=== PATIENT | male | born 1950 | race Caucasian/White ===

== ENCOUNTER 2016-08-17 11:22 | Emergency (ER) | payer MEDICARE ==
[~2016-08-17] VITALS: Ht 175.3 cm; Wt 57.5 kg
[2016-08-17] VITALS (7 sets, daily range): BP systolic 101–155; BP diastolic 53–82; PULSE 72–101; RESP 15–20; TEMP 97.8–98.8; O2SAT 97–100
[~2016-08-17 11:22] MED LIST: FOLI1TAB4 PO; IPRA17I INH; THERTAB15 PO; VITA10002 PO; VITA100T2 PO; WALKER WHEELS/F1 MIS
--- NOTE | 2016-08-17 11:36 | PD ---
Physical Exam Date Seen by Provider: Aug 17, 2016 Time Seen by Provider: 11:33 Narrative Patient brought in be EMS with reports of ETOH, Near Syncope this am, and lower leg edema for the past 2 weeks. Patient states Suicidal Ideation to EMS. C/O "pain all over" Received 500ml NS in EMS. Denies Fever, chills or chest pain. V/S now stable. Awaiting Med Bed placement. [facility] Medical Record Reviewed: Yes Supervised Visit with MICHELL: Yes Condition: Stable Dann Burr Aug 17, 2016 11:36
[2016-08-17] MEDS ORDERED: SODIUM CHLOR 0.9% 1000 ML INJ 1,000 ML IV ONE (12:24)
[2016-08-17] MEDS ORDERED: SODIUM CHLORIDE 0.9% FLUSH 10 ML FLUSH IVF PRN (12:30)
--- NOTE | 2016-08-17 12:33 | PD ---
HPI Chief Complaint: Dizziness Time Seen by Provider: 12:28 Travel History International Travel<30 days: No Contact w/Intl Traveler<30days: No Traveled to known affect area: No History of Present Illness HPI 66-year-old male presents to the emergency department for bilateral feet swelling, dizziness, presyncope. Patient reports being an alcoholic. He states he has not drink yet today, but did drink a 6 pack and vodka. The patient states that he walked on the beach and after walking on the beach, he felt dizzy. He states he was walking back to his house when he had a presyncopal episode and fell catching himself with his hands. He denies any fevers. He reports intermittent chest pain that has been ongoing for one year, none at this time. He denies any abdominal pain. No nausea or vomiting. He states the dizziness is worse with walking, relieved with rest. He denies any syncope. The patient states that he has been depressed for approximately 3-4 months after losing his job. He states that is when he started drinking alcohol heavily. He states that he will have thoughts about hurting himself and will drink alcohol which will relieve the fall. He denies any suicidal thoughts at this time. He has no plan to hurt himself. He does smoke, but denies any illicit drug use. PFSH Past Medical History Anemia: Yes Asthma: No Blood Disorders: No Anxiety: No Depression: No Heart Rhythm Problems: No Cancer: No Cardiovascular Problems: No High Cholesterol: No Chemotherapy: No Chest Pain: No Congestive Heart Failure: No COPD: No Diabetes: No Diminished Hearing: No Endocrine: No Gastrointestinal Disorders: No Genitourinary: No Immune Disorder: No Implanted Vascular Access Dvce: No Musculoskeletal: No Neurologic: No Psychiatric: No Reproductive: No Respiratory: No Pneumonia: Yes Radiation Therapy: No Sleep Apnea: No Thyroid Disease: No ?: Not Past Surgical History Surgical History: No Previous Surgery Pacemaker: No Other Surgery: No Social History Alcohol Use: Yes (daily) Tobacco Use: Yes (1/2 PPD) Substance Use: No Allergies-Medications (Allergen,Severity, Reaction): Coded Allergies: No Known Allergies (Unverified , 08/17/16) Reported Meds & Prescriptions Reported Meds & Active Scripts Active No Active Prescriptions or Reported Medications Review of Systems Except as stated in HPI: all other systems reviewed are Neg Physical Exam Narrative GENERAL: Well-nourished, well-developed male patient, afebrile. SKIN: Focused skin assessment warm/dry. HEAD: Normocephalic. Atraumatic. EYES: No scleral icterus. No injection or drainage. NECK: Supple, trachea midline. No JVD or lymphadenopathy. CARDIOVASCULAR: Regular rate and rhythm without murmurs, gallops, or rubs. Bilateral radial and pedal pulses 2+. RESPIRATORY: Breath sounds equal bilaterally. No accessory muscle use. Lungs sounds with slight extra wheezes noted in the bases. GASTROINTESTINAL: Abdomen soft, non-tender, nondistended. MUSCULOSKELETAL: No cyanosis. Patient has 2+ edema to the bilateral feet. No edema or erythema to the calves. He does have erythema to the bilateral dorsal feet, consistent with sunburn. BACK: Nontender without obvious deformity. No CVA tenderness. RECTAL EXAM: No masses or tenderness, stool is brown. Rectal exam was done with nurse at bedside. Data Data Last Documented VS Vital Signs Date Time Temp Pulse Resp B/P Pulse Ox O2 Delivery O2 Flow Rate FiO2 08/17/16 13:48 85 16 142/75 97 08/17/16 12:36 Room Air 08/17/16 11:34 97.8 Orders Electrocardiogram (08/17/16 11:54) Complete Blood Count With Diff (08/17/16 11:54) Comprehensive Metabolic Panel (08/17/16 11:54) Iv Access Insert/Monitor (08/17/16 11:54) Magnesium (Mg) (08/17/16 12:24) B-Type Natriuretic Peptide (08/17/16 12:24) Ckmb (Isoenzyme) Profile (08/17/16 12:24) Troponin I (08/17/16 12:24) Urinalysis - C+S If Indicated (08/17/16 12:24) Chest, Single Ap (08/17/16 12:24) Ct Brain W/O Iv Contrast(Rout) (08/17/16 12:24) Ecg Monitoring (08/17/16 12:24) Oximetry (08/17/16 12:24) Sodium Chloride 0.9% Flush (Ns Flush) (08/17/16 12:30) Sodium Chlor 0.9% 1000 Ml Inj (Ns 1000 M (08/17/16 12:24) Alcohol (Ethanol) (08/17/16 12:24) Drug Screen, Random Urine (08/17/16 12:24) Orthostatic Vital Signs (08/17/16 12:24) Psych Screen (08/17/16 14:39) Magnesium Oxide (Mag-Ox) (08/17/16 14:45) Labs Laboratory Tests Test 08/17/16 08/17/16 12:32 13:42 Urine Color YELLOW Urine Turbidity CLEAR Urine pH 6.5 Urine Specific [place] 1.009 Urine Protein NEG mg/dL Urine Glucose (UA) NEG mg/dL Urine Ketones NEG mg/dL Urine Occult Blood NEG Urine Nitrite NEG Urine Bilirubin NEG Urine Urobilinogen 2.0 MG/DL Urine Leukocyte Esterase NEG Urine RBC LESS THAN 1 /hpf Urine WBC LESS THAN 1 /hpf Urine Hyaline Casts 35 /lpf Urine Mucus FEW /lpf Microscopic Urinalysis Comment CULT NOT INDICATED Sodium Level 138 MEQ/L Potassium Level 3.6 MEQ/L Chloride Level 105 MEQ/L Carbon Dioxide Level 22.8 MEQ/L Anion Gap 10 MEQ/L Blood Urea Nitrogen 7 MG/DL Creatinine 0.97 MG/DL Estimat Glomerular Filtration 78 ML/MIN Rate Random Glucose 89 MG/DL Calcium Level 7.6 MG/DL Magnesium Level 1.1 MG/DL Total Bilirubin 1.5 MG/DL Aspartate Amino Transf 70 U/L (AST/SGOT) Alanine Aminotransferase 30 U/L (ALT/SGPT) Alkaline Phosphatase 153 U/L Total Creatine Kinase 54 U/L Troponin I LESS THAN 0.02 NG/ML B-Type Natriuretic Peptide 227 PG/ML Total Protein 6.4 GM/DL Albumin 3.0 GM/DL Urine Opiates Screen NEG Urine Barbiturates Screen NEG Urine Amphetamines Screen NEG Urine Benzodiazepines Screen NEG Urine Cocaine Screen NEG Urine Cannabinoids Screen NEG Ethyl Alcohol Level LESS THAN 3 MG/DL White Blood Count 3.4 TH/MM3 Red Blood Count 2.44 MIL/MM3 Hemoglobin 8.9 GM/DL Hematocrit 25.8 % Mean Corpuscular Volume 105.6 FL Mean Corpuscular Hemoglobin 36.5 PG Mean Corpuscular Hemoglobin 34.6 % Concent Red Cell Distribution Width 19.3 % Platelet Count 61 TH/MM3 Mean Platelet Volume 9.6 FL Neutrophils (%) (Auto) 43.5 % Lymphocytes (%) (Auto) 41.1 % Monocytes (%) (Auto) 14.2 % Eosinophils (%) (Auto) 0.4 % Basophils (%) (Auto) 0.8 % Neutrophils # (Auto) 1.5 TH/MM3 Lymphocytes # (Auto) 1.4 TH/MM3 Monocytes # (Auto) 0.5 TH/MM3 Eosinophils # (Auto) 0.0 TH/MM3 Basophils # (Auto) 0.0 TH/MM3 CBC Comment AUTO DIFF MDM Medical Decision Making Medical Screen Exam Complete: Yes Emergency Medical Condition: Yes Medical Record Reviewed: Yes Interpretation(s) CT brain - CONCLUSION: Diffuse atrophy, prominent for age. No acute intracranial findings. chest x-ray - CONCLUSION: Scarring versus subsegmental atelectasis at the right lung base. Differential Diagnosis Electrolyte abnormality versus alcoholism versus dehydration versus intracranial abnormality versus ACS Narrative Course 66-year-old male presents to the emergency department for evaluation of dizziness, presyncope, bilateral feet swelling, depression. EKG shows sinus rhythm, heart rate 64, no acute ST changes. IV access established. CBC, CMP, magnesium, CK, troponin, BNP, UA, alcohol level, urine drug screen are ordered and pending. Chest x-ray and CT of the brain are ordered and pending. Orthostatic vital signs are ordered and pending. Patient is given normal saline 1 L IV bolus. CBC shows leukopenia 3.4, hemoglobin 8.9, hematocrit 25.8, platelets 61. CMP shows elevated bilirubin 1.5, AST 70, apply phosphatase 153. Magnesium is 1.1. CK is 54. Troponin is less than 0.02. BNP is 227. UA is negative for acute infection. Alcohol level is less than 3. UDS is negative. Chest x-ray shows Scarring versus subsegmental atelectasis at the right lung base. CT of the brain shows diffuse atrophy, prominent for age. No acute intracranial findings. Orthostatic VS is significant for lying blood pressure 155/82, heart rate 58, standing 123/79, heart rate 97. Patient was given normal saline 1 L IV bolus. Rectal exam was done due to hemoglobin of 8.9 which showed negative Hemoccult. Patient states he feels better and is asking for food. Patient is given magnesium oxide 400 mg by mouth for hypomagnesemia. I discussed the case and findings with my attending physician, Dr. Chavez, who agrees with plan and disposition. Psych screen is ordered. Patient is medically cleared for psych issues screening and disposition. [facility] Point of Care Internal Pos. & Neg. Controls: Passed Fecal Specimen Occult Blood: Negative Diagnosis Primary Impression: Dizziness Additional Impressions: Hypomagnesemia Depression Qualified Code: F32.9 - Depression, unspecified depression type Additional Instructions: Patient is medically cleared for psychiatric screening and disposition. Scripts No Active Prescriptions or Reported Meds Condition: Fernanda Prescott Aug 17, 2016 12:33
[2016-08-17 13:33] LABS: MAGNESIUM 1.1 MG/DL (1.5-2.5)
[2016-08-17 13:34] LABS: CREATINE KINASE 54 U/L (39-308)
[2016-08-17 13:45] LABS: AMPHETAMINE, URINE NEG (NEG); BARBITURATES, URINE NEG (NEG); BLOOD, URINE NEG (NEG); COCAINE, URINE NEG (NEG); COMMENT (UR) CULT NOT INDICATED; CULTURE IF INDICATED CULT NOT INDICATED; GLUCOSE,URINE NEG (NEG); HYALINE CAST, URINE 35 /lpf (RARE); KETONE, URINE NEG (NEG); MUCUS URINE FEW /lpf (OCC); NITRITE,URINE NEG (NEG); PH, URINE 6.5 (5.0-8.5); URINE COLOR YELLOW (YELLW/STRAW)
--- NOTE | 2016-08-17 13:46 | RADRPT ---
EXAM DATE/TIME: 08/17/2016 12:38 [facility] COMPARISON: No previous studies available for comparison. INDICATIONS : Dizziness. RADIATION DOSE: 56.35 CTDIvol (mGy) MEDICAL HISTORY : None SURGICAL HISTORY : None. ENCOUNTER: Initial ACUITY: 1 day PAIN SCALE: 0/10 LOCATION: cranial TECHNIQUE: Multiple contiguous axial images were obtained of the head. Using automated exposure control and adj ustment of the mA and/or kV according to patient size, radiation dose was kept as low as reasonably a chievable to obtain optimal diagnostic quality images. FINDINGS: CEREBRUM: Diffuse prominence of the ventricles, sulci, and cisterns indicating diffuse atrophy, prominent for a ge. No evidence of midline shift, mass lesion, hemorrhage or acute infarction. No extra-axial fluid collections are seen. POSTERIOR FOSSA: The cerebellum and brainstem are intact. The 4th ventricle is midline. The cerebellopontine angle i s unremarkable. EXTRACRANIAL: The visualized portion of the orbits is intact. SKULL: The calvaria is intact. No evidence of skull fracture. CONCLUSION: Diffuse atrophy, prominent for age. No acute intracranial findings. Ted Maynard MD on August 17, 2016 at 13:42 Board Certified Radiologist. This report was verified electronically.
--- NOTE | 2016-08-17 13:52 | RADRPT ---
EXAM DATE/TIME: 08/17/2016 12:46 [facility] COMPARISON: CHEST SINGLE AP, March 24, 2016, 10:11. INDICATIONS : Cough. MEDICAL HISTORY : None. SURGICAL HISTORY : None. ENCOUNTER: Initial ACUITY: 1 day PAIN SCORE: 0/10 LOCATION: Bilateral chest FINDINGS: Single AP view of the chest. Linear subsegmental atelectasis versus scarring at the right lung base. The lungs are otherwise clear. Cardiomediastinal silhouette within normal limits. No evidence of pleu ral effusion or pneumothorax. CONCLUSION: Scarring versus subsegmental atelectasis at the right lung base. Ted Maynard MD on August 17, 2016 at 13:49 Board Certified Radiologist. This report was verified electronically.
[2016-08-17 14:03] LABS: ALKALINE PHOSPHATASE 153 U/L (45-117); ALT (GPT) 30 U/L (12-78); ANION GAP 10 MEQ/L (5-15); AST (GOT) 70 U/L (15-37); BICARBONATE 22.8 MEQ/L (21.0-32.0); BLOOD UREA NITROGEN 7 MG/DL (7-18); CHLORIDE 105 MEQ/L (98-107); GLOMERULAR FILTRATION RATE 78 ML/MIN (>89); POTASSIUM 3.6 MEQ/L (3.5-5.1); SODIUM (NA) 138 MEQ/L (136-145); TOTAL BILIRUBIN ADULT 1.5 MG/DL (0.2-1.0)
[2016-08-17 14:15] LABS: AUTOMATED NEUTROPHIL # 1.5 TH/MM3 (1.8-7.7); BASOPHIL % 0.8 % (0.0-2.0); EOSINOPHIL % 0.4 % (0.0-4.0); HEMATOCRIT 25.8 % (39.0-51.0); LYMPH % 41.1 % (9.0-44.0); LYMPHOCYTE # 1.4 TH/MM3 (1.0-4.8); MEAN CELL VOLUME 105.6 FL (80.0-100.0); MEAN CORPUSCULAR HEMOGLOBIN 36.5 PG (27.0-34.0); MEAN CORPUSCULAR HGB CONC 34.6 % (32.0-36.0); MONO % 14.2 % (0.0-8.0); NEUT % 43.5 % (16.0-70.0); PLATELET COUNT 61 TH/MM3 (150-450); RED BLOOD COUNT 2.44 MIL/MM3 (4.50-5.90); RED CELL DISTRIBUTION WIDTH 19.3 % (11.6-17.2); WHITE BLOOD COUNT 3.4 TH/MM3 (4.0-11.0)
[2016-08-17 14:21] LABS: HEMO FLAGS AUTO DIFF
[2016-08-17] MEDS ORDERED: MAGNESIUM OXIDE 400 MG TAB PO ONE (14:45)
[2016-08-17 15:31] LABS: PLATELET ESTIMATE SMEAR LOW (NORMAL); PLATELET MORPHOLOGY NORMAL (NORMAL); SCAN/DIFF AUTO DIFF CONFIRMED
[2016-08-17] MEDS ORDERED: FLUMAZENIL 0.5 MG/5 ML VIAL IV PUSH PRN (19:15)
[2016-08-17] MEDS ORDERED: LORazepam 2 MG TAB PO PRN (19:15)
[2016-08-17] MEDS ORDERED: LORazepam 2 MG/ML VIAL IV PUSH PRN ×4 (19:15)
[2016-08-17] MEDS ORDERED: LORazepam 1 MG TAB PO PRN (19:15)
[2016-08-18 02:09] VITALS: BP 110/58; PULSE 65; RESP 18
[2016-08-18 06:12] VITALS: BP 105/63; PULSE 61; RESP 18
--- NOTE | 2016-08-18 23:08 | EKG ---
Date Performed: 08/17/2016 Time Performed: 12:28:28 PTAGE: 66 years EKG: JUNCTIONAL RHYTHM ABNORMAL RHYTHM ECG PREVIOUS TRACING : 03/24/2016 10.07 Compared to the previous tracing junctional rhythm is new DOCTOR: Samuel Butts Interpretating Date/Time 08/18/2016 23:07:35
== END 2016-08-18 10:24 ==
LOC: NEPC 11:22 → NEPJ 08-18 10:24
DX: R42 Dizziness and giddiness (principal); E83.42 Hypomagnesemia; R05 Cough; F33.9 Major depressive disorder, recurrent, unspecified; R07.9 Chest pain, unspecified; D72.819 Decreased white blood cell count, unspecified; I49.9 Cardiac arrhythmia, unspecified; F10.20 Alcohol dependence, uncomplicated
CPT/HCPCS: 70450; 71010; 80053; 80307; 81001; 82550; 83735; 83880; 84484; 85025; 93005; 96360; 99285; J7030

== ENCOUNTER 2017-01-09 16:28 | Emergency (ER) | payer MEDICARE, OTHER ==
[~2017-01-09] VITALS: Ht 175 cm; Wt 65.0 kg
[2017-01-09 16:36] VITALS: BP 131/79; PULSE 97; RESP 22; TEMP 97.7; O2SAT 100
[2017-01-09 17:08] LABS: AUTOMATED NEUTROPHIL # 2.7 TH/MM3 (1.8-7.7); BASOPHIL % 1.1 % (0.0-2.0); EOSINOPHIL % 0.7 % (0.0-4.0); HEMATOCRIT 34.5 % (39.0-51.0); HEMO FLAGS DIFF FINAL; LYMPH % 25.7 % (9.0-44.0); LYMPHOCYTE # 1.2 TH/MM3 (1.0-4.8); MEAN CELL VOLUME 105.6 FL (80.0-100.0); MEAN CORPUSCULAR HEMOGLOBIN 35.7 PG (27.0-34.0); MEAN CORPUSCULAR HGB CONC 33.8 % (32.0-36.0); MONO % 15.4 % (0.0-8.0); NEUT % 57.1 % (16.0-70.0); PLATELET COUNT 102 TH/MM3 (150-450); RED BLOOD COUNT 3.26 MIL/MM3 (4.50-5.90); RED CELL DISTRIBUTION WIDTH 13.2 % (11.6-17.2); WHITE BLOOD COUNT 4.7 TH/MM3 (4.0-11.0)
[2017-01-09 17:48] LABS: ALKALINE PHOSPHATASE 126 U/L (45-117); ALT (GPT) 34 U/L (12-78); ANION GAP 9 MEQ/L (5-15); AST (GOT) 45 U/L (15-37); BLOOD UREA NITROGEN 6 MG/DL (7-18); CHLORIDE 98 MEQ/L (98-107); GLOMERULAR FILTRATION RATE 62 ML/MIN (>89); POTASSIUM 3.5 MEQ/L (3.5-5.1); SODIUM (NA) 132 MEQ/L (136-145); TOTAL BILIRUBIN ADULT 0.9 MG/DL (0.2-1.0)
[2017-01-09 17:49] LABS: ALCOHOL LESS THAN 3 MG/DL (0-5)
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
[2017-01-09] MEDS ORDERED: LORazepam 2 MG TAB PO PRN (18:15)
[2017-01-09] MEDS ORDERED: LORazepam 2 MG/ML VIAL IV PUSH PRN ×4 (18:15)
[2017-01-09] MEDS ORDERED: FLUMAZENIL 0.5 MG/5 ML VIAL IV PUSH PRN (18:15)
[2017-01-09] MEDS ORDERED: ACETAMINOPHEN 325 MG TAB PO PRN (18:15)
[2017-01-09] MEDS ORDERED: LORazepam 1 MG TAB PO PRN (18:15)
[2017-01-09] MEDS ORDERED: ONDANSETRON ODT 4 MG TAB PO PRN (18:15)
[2017-01-09 20:48] VITALS: BP 142/65; PULSE 87; RESP 17; O2SAT 100
[2017-01-10 02:00] VITALS: BP 109/56; PULSE 62; RESP 19; O2SAT 100
[2017-01-10 06:12] VITALS: BP 108/58; PULSE 65; RESP 18; O2SAT 95
--- NOTE | 2017-01-10 09:49 | PD ---
Physical Exam Date Seen by Provider: Jan 10, 2017 Time Seen by Provider: 09:48 Narrative For full history and physical examination please see previous provider's notes. Data Data Last Documented VS Vital Signs Date Time Temp Pulse Resp B/P (MAP) Pulse Ox O2 Delivery O2 Flow Rate FiO2 01/10/17 06:12 65 18 108/58 (75) 95 01/10/17 02:00 Room Air 01/09/17 16:36 97.7 Orders Orders Complete Blood Count With Diff (01/09/17 16:44) Comprehensive Metabolic Panel (01/09/17 16:44) Psych Screen (01/09/17 16:44) Drug Screen, Random Urine (01/09/17 16:44) Alcohol (Ethanol) (01/09/17 16:44) Alcohol Withdrawal Asmt-Ciwa ONCE (01/09/17 18:05) Ondansetron Odt (Zofran Odt) (01/09/17 18:15) Acetaminophen (Tylenol) (01/09/17 18:15) Flumazenil Inj (Romazicon Inj) (01/09/17 18:15) Lorazepam (Ativan) (01/09/17 18:15) Lorazepam Inj (Ativan Inj) (01/09/17 18:15) Lorazepam (Ativan) (01/09/17 18:15) Lorazepam Inj (Ativan Inj) (01/09/17 18:15) Lorazepam Inj (Ativan Inj) (01/09/17 18:15) Lorazepam Inj (Ativan Inj) (01/09/17 18:15) Diet Regular Basic (01/10/17 Breakfast) Diet Regular Basic (01/10/17 Lunch) Labs Laboratory Tests Test 01/09/17 16:50 01/09/17 16:55 White Blood Count 4.7 TH/MM3 Red Blood Count 3.26 MIL/MM3 Hemoglobin 11.7 GM/DL Hematocrit 34.5 % Mean Corpuscular Volume 105.6 FL Mean Corpuscular Hemoglobin 35.7 PG Mean Corpuscular Hemoglobin Concent 33.8 % Red Cell Distribution Width 13.2 % Platelet Count 102 TH/MM3 Mean Platelet Volume 8.8 FL Neutrophils (%) (Auto) 57.1 % Lymphocytes (%) (Auto) 25.7 % Monocytes (%) (Auto) 15.4 % Eosinophils (%) (Auto) 0.7 % Basophils (%) (Auto) 1.1 % Neutrophils # (Auto) 2.7 TH/MM3 Lymphocytes # (Auto) 1.2 TH/MM3 Monocytes # (Auto) 0.7 TH/MM3 Eosinophils # (Auto) 0.0 TH/MM3 Basophils # (Auto) 0.0 TH/MM3 CBC Comment DIFF FINAL Differential Comment Blood Urea Nitrogen 6 MG/DL Creatinine 1.18 MG/DL Random Glucose 125 MG/DL Total Protein 7.4 GM/DL Albumin 3.8 GM/DL Calcium Level 9.4 MG/DL Alkaline Phosphatase 126 U/L Aspartate Amino Transf (AST/SGOT) 45 U/L Alanine Aminotransferase (ALT/SGPT) 34 U/L Total Bilirubin 0.9 MG/DL Sodium Level 132 MEQ/L Potassium Level 3.5 MEQ/L Chloride Level 98 MEQ/L Carbon Dioxide Level 25.0 MEQ/L Anion Gap 9 MEQ/L Estimat Glomerular Filtration Rate 62 ML/MIN Ethyl Alcohol Level LESS THAN 3 MG/DL Urine Opiates Screen NEG Urine Barbiturates Screen NEG Urine Amphetamines Screen NEG Urine Benzodiazepines Screen POS Urine Cocaine Screen NEG Urine Cannabinoids Screen NEG MDM Medical Record Reviewed: Yes Supervised Visit with MICHELL: No Narrative Course Patient presented voluntarily to emergency department in order to obtain transportation to the [facility]. He has a history of depression and alcoholism, there was no suicidal or homicidal ideations. Patient was seen and evaluated by psychiatric nurse practitioner, he will be discharged home with follow-up at the [facility]. Diagnosis Primary Impression: Depression Qualified Codes: F33.1 - Major depressive disorder, recurrent, moderate Additional Impression: Alcoholism Referrals: [facility] (Out patient) Patient Instructions: General Instructions Additional Instruction: Avoid excessive alcohol intake Follow-up at the [facility] or at [facility] Return to emergency department for any new or worsening symptoms Med/Other Pt SpecificInfo: No Change to Meds Scripts No Active Prescriptions or Reported Meds Disposition: 01 DISCHARGE HOME Condition: Stable Noemy Webb Jan 10, 2017 09:49
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
== END 2017-01-10 09:58 | disposition home or self-care (01) ==
LOC: NEDAMB 16:28 → NEPJ 01-10 09:58
DX: F33.1 Major depressive disorder, recurrent, moderate (principal); F10.20 Alcohol dependence, uncomplicated; Y90.0 Blood alcohol level of less than 20 mg/100 ml; Z72.0 Tobacco use
CPT/HCPCS: 80053; 80307; 85025; 99284

== ENCOUNTER 2017-05-03 13:38 | Emergency (ER) | payer MEDICARE, OTHER ==
[~2017-05-03] VITALS: Ht 175.3 cm; Wt 66.0 kg
[2017-05-03 13:56] VITALS: BP 148/64; PULSE 117; RESP 20; TEMP 97.8; O2SAT 95
--- NOTE | 2017-05-03 14:41 | PD ---
Physical Exam Time Seen by Provider: 14:38 Narrative 67-year-old male presents emergency Department with complaint of his legs giving out and feeling dizzy today. Has continued dizziness. Reports leg pain and weakness. He says his legs have no strength. Denies chest pain, shortness of breath. Says his heart was beating fast when the paramedics came. No fever , vomiting. Patient seen in triage. VS reviewed. Awaiting bed placement. See next providers note for final patient disposition. Data Data Last Documented VS Vital Signs Date Time Temp Pulse Resp B/P (MAP) Pulse Ox O2 Delivery O2 Flow Rate FiO2 05/03/17 13:56 97.8 117 20 148/64 (92) 95 Room Air MDM Supervised Visit with MICHELL: No Scripts No Active Prescriptions or Reported Meds Alejandra Pickering May 03, 2017 14:41
[2017-05-03] MEDS ORDERED: POTA595T PO (14:57)
[2017-05-03] MEDS ORDERED: ONE-TAB PO (14:57)
--- NOTE | 2017-05-03 15:52 | PD ---
HPI Chief Complaint: General Weakness Time Seen by Provider: 15:50 Travel History International Travel<30 days: No Contact w/Intl Traveler<30days: No Traveled to known affect area: No History of Present Illness HPI DELETE, DUPLICATE PFSH Past Medical History Anemia: Yes Asthma: No Blood Disorders: No Anxiety: No Depression: No Heart Rhythm Problems: No Cancer: No Cardiovascular Problems: No High Cholesterol: No Chemotherapy: No Chest Pain: No Congestive Heart Failure: No COPD: Yes Diabetes: No Diminished Hearing: No Endocrine: No Gastrointestinal Disorders: No Genitourinary: No Immune Disorder: No Implanted Vascular Access Dvce: No Musculoskeletal: No Neurologic: No Psychiatric: No Reproductive: No Respiratory: Yes Pneumonia: Yes Radiation Therapy: No Sleep Apnea: No Thyroid Disease: No Past Surgical History Surgical History: No Previous Surgery Pacemaker: No Other Surgery: No Social History Alcohol Use: Yes (couple beers per day) Tobacco Use: Yes Substance Use: No Allergies-Medications (Allergen,Severity, Reaction): Coded Allergies: No Known Allergies (Unverified Adverse Reaction, Unknown, 05/03/17) Reported Meds & Prescriptions Reported Meds & Active Scripts Active Reported Potassium Gluconate 595 Mg (99 Mg) Tab 1 Caplet PO DAILY One-A-Day Essential (Multiple Vitamin) 1 Tab 1 Tab PO DAILY Data Data Last Documented VS Orders Orders Electrocardiogram (05/03/17 15:50) Ckmb (Isoenzyme) Profile (05/03/17 15:50) Complete Blood Count With Diff (05/03/17 15:50) Comprehensive Metabolic Panel (05/03/17 15:50) Magnesium (Mg) (05/03/17 15:50) Prothrombin Time / Inr (Pt) (05/03/17 15:50) Act Partial Throm Time (Ptt) (05/03/17 15:50) Troponin I (05/03/17 15:50) Chest, Single Ap (05/03/17 15:50) Ecg Monitoring (05/03/17 15:50) Iv Access Insert/Monitor (05/03/17 15:50) Oximetry (05/03/17 15:50) Oxygen Administration (05/03/17 15:50) Sodium Chloride 0.9% Flush (Ns Flush) (05/03/17 16:00) Sodium Chlorid 0.9% 500 Ml Inj (Ns 500 M (05/03/17 16:00) CKMB (05/03/17 16:06) CKMB% (05/03/17 16:06) Ed Discharge Order (05/03/17 17:30) Labs Laboratory Tests Test 05/03/17 16:06 White Blood Count 6.2 TH/MM3 Red Blood Count 3.58 MIL/MM3 Hemoglobin 12.4 GM/DL Hematocrit 36.6 % Mean Corpuscular Volume 102.2 FL Mean Corpuscular Hemoglobin 34.6 PG Mean Corpuscular Hemoglobin Concent 33.8 % Red Cell Distribution Width 14.8 % Platelet Count 123 TH/MM3 Mean Platelet Volume 8.1 FL Neutrophils (%) (Auto) 71.4 % Lymphocytes (%) (Auto) 19.2 % Monocytes (%) (Auto) 8.5 % Eosinophils (%) (Auto) 0.1 % Basophils (%) (Auto) 0.8 % Neutrophils # (Auto) 4.4 TH/MM3 Lymphocytes # (Auto) 1.2 TH/MM3 Monocytes # (Auto) 0.5 TH/MM3 Eosinophils # (Auto) 0.0 TH/MM3 Basophils # (Auto) 0.0 TH/MM3 CBC Comment DIFF FINAL Differential Comment Prothrombin Time 10.3 SEC Prothromb Time International Ratio 1.0 RATIO Activated Partial Thromboplast Time 29.4 SEC Blood Urea Nitrogen 10 MG/DL Creatinine 1.20 MG/DL Random Glucose 110 MG/DL Total Protein 7.8 GM/DL Albumin 4.3 GM/DL Calcium Level 9.0 MG/DL Magnesium Level 1.5 MG/DL Alkaline Phosphatase 104 U/L Aspartate Amino Transf (AST/SGOT) 51 U/L Alanine Aminotransferase (ALT/SGPT) 34 U/L Total Bilirubin 0.8 MG/DL Sodium Level 132 MEQ/L Potassium Level 4.6 MEQ/L Chloride Level 93 MEQ/L Carbon Dioxide Level 28.2 MEQ/L Anion Gap 11 MEQ/L Estimat Glomerular Filtration Rate 61 ML/MIN Total Creatine Kinase 115 U/L Creatine Kinase MB 0.9 NG/ML Troponin I LESS THAN 0.02 NG/ML Valerio Hadley MD May 03, 2017 15:52
[2017-05-03] MEDS ORDERED: SODIUM CHLORID 0.9% 500 ML INJ 500 ML IV ONE (16:00)
[2017-05-03] MEDS ORDERED: SODIUM CHLORIDE 0.9% FLUSH 10 ML FLUSH IVF PRN (16:00)
[2017-05-03 16:21] LABS: AUTOMATED NEUTROPHIL # 4.4 TH/MM3 (1.8-7.7); BASOPHIL % 0.8 % (0.0-2.0); EOSINOPHIL % 0.1 % (0.0-4.0); HEMATOCRIT 36.6 % (39.0-51.0); HEMOGLOBIN 12.4 GM/DL (13.0-17.0); LYMPH % 19.2 % (9.0-44.0); LYMPHOCYTE # 1.2 TH/MM3 (1.0-4.8); MEAN CELL VOLUME 102.2 FL (80.0-100.0); MEAN CORPUSCULAR HEMOGLOBIN 34.6 PG (27.0-34.0); MEAN CORPUSCULAR HGB CONC 33.8 % (32.0-36.0); MEAN PLATELET VOLUME 8.1 FL (7.0-11.0); MONO % 8.5 % (0.0-8.0); MONOCYTE # 0.5 TH/MM3 (0-0.9); NEUT % 71.4 % (16.0-70.0); PLATELET COUNT 123 TH/MM3 (150-450); RED BLOOD COUNT 3.58 MIL/MM3 (4.50-5.90); RED CELL DISTRIBUTION WIDTH 14.8 % (11.6-17.2); WHITE BLOOD COUNT 6.2 TH/MM3 (4.0-11.0)
[2017-05-03 16:29] LABS: PROTHROMBIN TIME - PATIENT 10.3 SEC (9.8-11.6)
[2017-05-03 16:37] LABS: ALBUMIN 4.3 GM/DL (3.4-5.0); AST (GOT) 51 U/L (15-37); BICARBONATE 28.2 MEQ/L (21.0-32.0); BLOOD UREA NITROGEN 10 MG/DL (7-18); CHLORIDE 93 MEQ/L (98-107); GLOMERULAR FILTRATION RATE 61 ML/MIN (>89); GLUCOSE,RANDOM 110 MG/DL (74-106); MAGNESIUM 1.5 MG/DL (1.5-2.5); SODIUM (NA) 132 MEQ/L (136-145)
[2017-05-03 16:38] LABS: ALT (GPT) 34 U/L (12-78)
[2017-05-03 16:42] LABS: ALKALINE PHOSPHATASE 104 U/L (45-117); TOTAL BILIRUBIN ADULT 0.8 MG/DL (0.2-1.0); TOTAL PROTEIN 7.8 GM/DL (6.4-8.2); TROPONIN I LESS THAN 0.02 NG/ML (0.02-0.05)
--- NOTE | 2017-05-03 16:46 | RADRPT ---
EXAM DATE/TIME: 05/03/2017 16:02 [facility] COMPARISON: CHEST SINGLE AP, August 17, 2016, 12:46. INDICATIONS : Shortness of breath. MEDICAL HISTORY : None. SURGICAL HISTORY : None. ENCOUNTER: Initial ACUITY: 1 day PAIN SCORE: 0/10 LOCATION: Bilateral chest FINDINGS: 2 AP portable erect views of the chest demonstrates no evidence of mass, infiltrate or effusion. Ther e is mild scarring at the right lung base. There is mild volume loss again noted in the right hemitho rax. The cardiomediastinal contours are unremarkable. Osseous structures are intact. CONCLUSION: No acute disease. Adrian Huizar MD on May 03, 2017 at 16:41 Board Certified Radiologist. This report was verified electronically.
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
--- NOTE | 2017-05-04 16:24 | EKG ---
Date Performed: 05/03/2017 Time Performed: 16:11:49 PTAGE: 67 years EKG: Sinus rhythm NORMAL ECG PREVIOUS TRACING : 08/17/2016 12.28 Compared to previous tracing, sinus rhythm has replaced jt ctional rhythm. DOCTOR: Lenin Camacho Interpretating Date/Time 05/04/2017 16:22:45
== END 2017-05-03 18:11 | disposition home or self-care (01) ==
LOC: NEPD 13:38
DX: R53.1 Weakness (principal); D64.9 Anemia, unspecified; J44.9 Chronic obstructive pulmonary disease, unspecified; Z72.0 Tobacco use; Z79.899 Other long term (current) drug therapy
CPT/HCPCS: 71045; 80053; 82550; 82552; 83735; 84484; 85025; 85610; 85730; 93005; 99285; J7040

== ENCOUNTER 2017-05-03 20:12 | Emergency (ER) | payer MEDICARE, MEDICAID ==
[~2017-05-03] VITALS: Ht 175.3 cm; Wt 66.0 kg
[~2017-05-03 20:12] MED LIST changes: -FOLI1TAB4 PO; -IPRA17I INH; +ONE-TAB PO; +POTA595T PO; -THERTAB15 PO; -VITA10002 PO; -VITA100T2 PO; -WALKER WHEELS/F1 MIS
[2017-05-03 20:19] VITALS: BP 165/116; PULSE 106; RESP 16; TEMP 98.4; O2SAT 100
--- NOTE | 2017-05-03 21:11 | PD ---
HPI Chief Complaint: General Weakness Time Seen by Provider: 21:08 Travel History International Travel<30 days: No Contact w/Intl Traveler<30days: No Traveled to known affect area: No History of Present Illness HPI 67-year-old male presents to emergency department for evaluation of bilateral lower extremity cramping. Patient was seen and evaluated earlier today and just discharged for evaluation of similar complaint except he stated he was dizzy earlier. Patient had no acute abnormality is identified in his lab work or workup earlier today. He states when he walks his legs began to cramp. He would like to know why this is happening. He also states that he does not have anywhere to go. He has his suitcase with him. He has no other symptoms to report at this time. PFSH Past Medical History Anemia: Yes Asthma: No Blood Disorders: No Anxiety: No Depression: No Heart Rhythm Problems: No Cancer: No Cardiovascular Problems: No High Cholesterol: No Chemotherapy: No Chest Pain: No Congestive Heart Failure: No COPD: Yes Diabetes: No Diminished Hearing: No Endocrine: No Gastrointestinal Disorders: No Genitourinary: No Immune Disorder: No Implanted Vascular Access Dvce: No Musculoskeletal: No Neurologic: No Psychiatric: No Reproductive: No Respiratory: Yes Pneumonia: Yes Radiation Therapy: No Sleep Apnea: No Thyroid Disease: No Past Surgical History Surgical History: No Previous Surgery Pacemaker: No Other Surgery: No Social History Alcohol Use: Yes (couple beers per day) Tobacco Use: Yes (1/2 PPD) Substance Use: No Allergies-Medications (Allergen,Severity, Reaction): Coded Allergies: No Known Allergies (Unverified Adverse Reaction, Unknown, 05/03/17) Reported Meds & Prescriptions Reported Meds & Active Scripts Active Reported Potassium Gluconate 595 Mg (99 Mg) Tab 1 Caplet PO DAILY One-A-Day Essential (Multiple Vitamin) 1 Tab 1 Tab PO DAILY Review of Systems Except as stated in HPI: all other systems reviewed are Neg Physical Exam Narrative GENERAL: Well-nourished, well-developed male patient, in no acute distress. SKIN: Focused skin assessment warm/dry. HEAD: Normocephalic. EYES: No scleral icterus. No injection or drainage. NECK: Supple, trachea midline. No JVD or lymphadenopathy. CARDIOVASCULAR: Elevated rate and rhythm without murmurs, gallops, or rubs. RESPIRATORY: Breath sounds equal bilaterally. No accessory muscle use. GASTROINTESTINAL: Abdomen soft, non-tender, nondistended. MUSCULOSKELETAL: No cyanosis, or edema. No tenderness elicited palpation of bilateral lower extremity. Patient has very limited here on the distal cherries , indicating some degree of PAD. BACK: Nontender without obvious deformity. No CVA tenderness. Data Data Last Documented VS Vital Signs Date Time Temp Pulse Resp B/P (MAP) Pulse Ox O2 Delivery O2 Flow Rate FiO2 05/03/17 21:43 20 99 05/03/17 20:19 98.4 106 Room Air Orders Orders Ed Discharge Order (05/03/17 21:15) MDM Medical Decision Making Medical Screen Exam Complete: Yes Emergency Medical Condition: Yes Medical Record Reviewed: Yes Differential Diagnosis Claudication versus PAD versus PVD versus cramping versus lymphoid abnormality Narrative Course 57-year-old male presents to the emergency department for evaluation of bilateral lower extremity pain. Patient was seen and evaluated for this today already. Full workup was completed he was discharge. The patient has nowhere to go. When I explained to him his previous workup and recommended follow-up with vascular outpatient, he then asks if he could Marchman act himself so he can stay here. I explained to him that he could not do that at this time and explained to him what a Marchman act was. He verbalizes understanding. He is discharged at this time. Diagnosis Primary Impression: Leg pain, bilateral Additional Impression: Malingering Referrals: Primary Care Physician Vascular Surgeon Patient Instructions: General Instructions, Peripheral Artery Disease (ED) Additional Instructions: Follow-up with a primary care provider Seek vascular evaluation if symptoms persist Stop smoking tobacco cigarettes and drinking alcohol as this may be worsening your leg pain Return immediately with any acute worsening of symptoms Med/Other Pt SpecificInfo: No Change to Meds Disposition: 01 DISCHARGE HOME Condition: Stable Ninoska VickersP May 03, 2017 21:11
== END 2017-05-03 21:44 | disposition home or self-care (01) ==
LOC: NEPD 20:12
DX: M79.605 Pain in left leg (principal); M79.604 Pain in right leg; R42 Dizziness and giddiness; D64.9 Anemia, unspecified; J44.9 Chronic obstructive pulmonary disease, unspecified; F17.200 Nicotine dependence, unspecified, uncomplicated; Z76.5 Malingerer [conscious simulation]; Z79.899 Other long term (current) drug therapy
CPT/HCPCS: 99282